=== PATIENT | male | born 2000 | race African-American/Black ===

== ENCOUNTER 2018-10-16 06:15 | Emergency (ER) | payer MEDICAID ==
[~2018-10-16] VITALS: Ht 180.3 cm; Wt 83.9 kg
[2018-10-16] MEDS ORDERED: MIDAZOLAM HCL/PF 5 MG/5 ML VIAL. ONE (06:25)
--- NOTE | 2018-10-16 06:44 | EKG ---
[facility] [address] [place] [address] Test Date: 2018-10-16 Test Time: 06:25:10 Pat Name: JOSÉ MIGUEL KRAMER Department: Room: Gender: M [employer]: : 2000 Requested By: CESARIO KRUEGER Order Number: [id number] Reading MD: Measurements Intervals [place] Rate: 117 P: 53 PA: 164 QRS: 71 QRSD: 92 T: 8 QT: 304 QTc: 428 Interpretive Statements SINUS TACHYCARDIA QRS(T) CONTOUR ABNORMALITY CONSIDER ANTEROSEPTAL MYOCARDIAL DAMAGE POSSIBLY ABNORMAL ECG RI6.01 No previous ECG available for comparison
[2018-10-16] MEDS ORDERED: IV NORMAL SALINE 1000ML BAG 1,000 ML IV ONE ×2 (07:00)
[2018-10-16 07:12] LABS: BILIRUBIN,URINE NEGATIVE (NEG); CLARITY,URINE CLEAR; NITRITE,URINE NEGATIVE (NEG); PH,URINE 6.5; PROTEIN,URINE NEGATIVE (NEG-TRACE); UROBILINOGEN,URINE 0.2 mg/dL (0.2 mg/dL)
[2018-10-16 07:13] LABS: BASO % 1 % (0-3); EOS % 1 % (0-3); HEMATOCRIT 45.9 % (39.0-53.0); HEMOGLOBIN 15.9 g/dL (13.0-17.5); LYMPH # 1.8 x10^3/uL (1.0-4.8); LYMPH % 33 % (24-48); MEAN CORPUSCULAR HEMOGLOBIN 31 pg (25-35); MEAN CORPUSCULAR HGB CONC 35 g/dL (31-37); MEAN CORPUSCULAR VOLUME 88 fL (79-100); MONO # 0.3 x10^3/uL (0.0-1.1); MONO % 7 % (0-9); NEUT # 3.2 x10^3/uL (1.8-7.7); NEUT % 60 % (31-73); PLATELET COUNT 222 x10^3/uL (140-400); RED CELL DISTRIBUTION WIDTH 12.8 % (11.5-14.5); WHITE BLOOD COUNT 5.4 x10^3/uL (4.0-11.0)
[2018-10-16 07:19] LABS: BARBITURATES NEG (NEG); BENZODIAZEPINES NEG (NEG); CANNABINOIDS NEG (NEG); COCAINE NEG (NEG); METHADONE NEG (NEG); OPIATES NEG (NEG); PHENCYCLIDINE NEG (NEG)
[2018-10-16 07:20] LABS: AMPHETAMINE/METHAMPHETAMINE NEG (NEG)
[2018-10-16 07:22] LABS: CALCIUM 9.3 mg/dL (8.5-10.1); CREATININE 1.4 mg/dL (0.7-1.3); GFR 78.2; POTASSIUM 3.6 mmol/L (3.5-5.1)
[2018-10-16 07:24] LABS: ALBUMIN 4.6 g/dL (3.4-5.0); ALBUMIN/GLOBULIN RATIO 1.3 (1.0-1.7); TOTAL BILIRUBIN 0.4 mg/dL (0.2-1.0); TOTAL PROTEIN 8.1 g/dL (6.4-8.2)
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
[2018-10-16 07:32] LABS: BACTERIA,URINE FEW /HPF (0-FEW); COLOR,URINE COLORLESS; RBC,URINE RARE /HPF (0-2); WBC,URINE RARE /HPF (0-4)
--- NOTE | 2018-10-16 07:49 | RAD ---
Chest radiograph 10/16/2018 6:40 AM INDICATION: Altered mental status COMPARISON: None available TECHNIQUE: Supine frontal view of the chest is provided. FINDINGS: The cardiomediastinal silhouette is within normal limits. There are no pleural effusions. There is no pulmonary vascular congestion. There is no pneumothorax. The lungs are clear. No significant osseous abnormality is identified. IMPRESSION: No acute cardiopulmonary process. Electronically signed by: Ana Louis MD (10/16/2018 7:46 AM) [facility]
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
[2018-10-16 11:41] VITALS: BP 113/68
== END 2018-10-16 11:47 | disposition home or self-care (01) ==
LOC: ER 06:15
DX: F10.129 Alcohol abuse with intoxication, unspecified (principal); R45.1 Restlessness and agitation; R41.82 Altered mental status, unspecified; Y90.8 Blood alcohol level of 240 mg/100 ml or more
CPT/HCPCS: 36415; 70450; 71045; 72125; 80053; 80307; 81001; 85025; 93005; 96360; 96361; 99285; G0480; J7030